=== PATIENT | male | born 1955 | race Caucasian/White ===

== ENCOUNTER 2017-12-28 21:41 | Inpatient (IN) | payer OTHER ==
[~2017-12-28] VITALS: Ht 185.4 cm; Wt 115.6 kg
[2017-12-28 23:04] LABS: Basophils # (auto) 0.1 uL; Basophils % (auto) 0.6 % (0.0-2.0); Eosinophils # (auto) 0.1 uL; Eosinophils % (auto) 1.3 % (0.0-7.0); Hematocrit 47.3 % (41.0-53.0); Hemoglobin 16.1 g/dL (13.5-17.5); Lymphocytes # (auto) 2.1 uL; Lymphocytes % (auto) 23.3 % (10.0-50.0); Mean Corpuscular Hemoglobin 33.9 pg (28.0-32.0); Mean Corpuscular Hgb Conc. 34.1 g/dL (32.0-36.0); Mean Corpuscular Volume 99.4 fL (80.0-100.0); Monocytes # (auto) 0.9 uL; Monocytes % (auto) 9.8 % (0.0-12.0); Neutrophils # (auto) 5.9 uL; Platelet Count (auto) 199 10^3/uL (140-450); Red Blood Cells 4.76 10^6/uL (4.5-5.90); Red Cell Distribution Width 13.8 % (11.8-14.3); White Blood Cell 9.1 10^3/uL (4.4-10.8)
[2017-12-28 23:20] LABS: INR 0.97 (0.9-1.15); Partial Thromboplastin Time 26.4 sec (22.64-33.71); Prothrombin Time 10.6 sec (9.37-12.3)
[2017-12-28 23:29] LABS: Albumin 3.5 g/dL (3.4-5.0); BUN/Creatinine Ratio 14.3; Bilirubin, Total 0.5 mg/dL (0.2-1.0); Calcium 8.6 mg/dL (8.5-10.1); Magnesium 2.2 mg/dL (1.6-2.6); Potassium 3.7 mmol/L (3.5-5.1); Total Protein 7.5 g/dL (6.4-8.2)
[2017-12-29] MEDS ORDERED: ENOXAPARIN SOD 120 MG/0.8 ML SYRINGE SC ONE (00:15)
[2017-12-29] MEDS ORDERED: METOPROLOL TARTRATE 25 MG TAB PO ONE (00:15)
[2017-12-29] MEDS ORDERED: CLOPIDOGREL BISULFATE 75 MG TAB PO ONE (00:15)
[2017-12-29] MEDS ORDERED: ATORVASTATIN 20 MG TAB PO ONE (00:15)
[2017-12-29] MEDS ORDERED: NITROGLYCERIN 0.4 MG SL TAB SL PRN (04:15)
[2017-12-29] MEDS ORDERED: HYDROcodone-ACET 5/325MG TAB PO PRN (04:15)
[2017-12-29] MEDS ORDERED: ACETAMINOPHEN 500 MG TAB PO PRN (04:15)
[2017-12-29] MEDS ORDERED: MORPHINE SULFATE 4 MG/ML SYR/VIAL IV PRN (04:15)
[2017-12-29] MEDS ORDERED: ONDANSETRON HCL 4 MG/2 ML VIAL IV PRN (04:15)
[2017-12-29 05:50] LABS: Basophils # (auto) 0.1 uL; Eosinophils # (auto) 0 uL; Monocytes # (auto) 0.9 uL; Monocytes % (auto) 9.9 % (0.0-12.0); Red Cell Distribution Width 13.9 % (11.8-14.3)
[2017-12-29 05:52] VITALS: BP 145/81
[2017-12-29 05:59] LABS: Basophils % (auto) 1.1 % (0.0-2.0); Eosinophils % (auto) 0.5 % (0.0-7.0); Hemoglobin 16.9 g/dL (13.5-17.5); Lymphocytes # (auto) 2.8 uL; Lymphocytes % (auto) 30.2 % (10.0-50.0); Mean Corpuscular Hemoglobin 34.9 pg (28.0-32.0); Mean Corpuscular Hgb Conc. 35.1 g/dL (32.0-36.0); Mean Corpuscular Volume 99.4 fL (80.0-100.0); Neutrophils # (auto) 5.3 uL; Neutrophils % (auto) 58.3 % (37.0-80.0); Nucleated Red Blood Cells % 0.1 %; Platelet Count (auto) 209 10^3/uL (140-450); Red Blood Cells 4.83 10^6/uL (4.5-5.90); White Blood Cell 9.2 10^3/uL (4.4-10.8)
[2017-12-29 06:24] LABS: BUN/Creatinine Ratio 16.3; Calcium 9.2 mg/dL (8.5-10.1); Potassium 4.3 mmol/L (3.5-5.1)
[2017-12-29 08:00] VITALS: BP 146/91
[2017-12-29 08:53] LABS: Basophils # (auto) 0.1 uL; Basophils % (auto) 0.8 % (0.0-2.0); Eosinophils # (auto) 0 uL; Eosinophils % (auto) 0.2 % (0.0-7.0); Hematocrit 50.5 % (41.0-53.0); Hemoglobin 17.2 g/dL (13.5-17.5); Lymphocytes # (auto) 2.7 uL; Lymphocytes % (auto) 25.2 % (10.0-50.0); Mean Corpuscular Hemoglobin 33.7 pg (28.0-32.0); Mean Corpuscular Hgb Conc. 34.1 g/dL (32.0-36.0); Mean Corpuscular Volume 98.9 fL (80.0-100.0); Monocytes # (auto) 1.1 uL; Monocytes % (auto) 10.1 % (0.0-12.0); Neutrophils # (auto) 6.7 uL; Neutrophils % (auto) 63.7 % (37.0-80.0); Nucleated Red Blood Cells % 0.4 %; Platelet Count (auto) 219 10^3/uL (140-450); Red Blood Cells 5.11 10^6/uL (4.5-5.90); Red Cell Distribution Width 13.9 % (11.8-14.3); White Blood Cell 10.6 10^3/uL (4.4-10.8)
[2017-12-29 08:59] LABS: INR 1.01 (0.9-1.15); Partial Thromboplastin Time 31.8 sec (22.64-33.71)
[2017-12-29] MEDS ORDERED: HEPARIN DRIP/D5W 100UNITS/ML 250 ML IV SCH (09:00)
[2017-12-29] MEDS ORDERED: HEPARIN SODIUM (PORCINE) 5000 UNITS/ML 1ML VIAL IV ONE (09:00)
[2017-12-29] MEDS ORDERED: CLOPIDOGREL BISULFATE 75 MG TAB PO SCH (10:00)
[2017-12-29] MEDS ORDERED: METOPROLOL TARTRATE 25 MG TAB PO SCH (10:00)
[2017-12-29] MEDS ORDERED: diphenhdrAMINE HCL 50 MG/1 ML VL IV ONE (10:15)
[2017-12-29] MEDS ORDERED: ASPirin 81 mg TAB PO SCH (10:17)
[2017-12-29] MEDS: methylPREDNISolone SOD SUCC 125 MG/2 ML VL IV SCH ×3 (10:43→17:49)
[2017-12-29] MEDS: METOPROLOL TARTRATE 25 MG TAB PO SCH ×2 (10:43→21:07)
[2017-12-29] MEDS ORDERED: LIDOCAINE 2%HCL (LOCAL ANESTH.) INJ 20ML MDV ONE (11:51)
[2017-12-29] MEDS ORDERED: IODIXANOL 320MG/ML 100ML BTL IV ONE (11:51)
[2017-12-29] MEDS ORDERED: methylPREDNISolone SOD SUCC 125 MG/2 ML VL IV SCH (12:00)
[2017-12-29] MEDS ORDERED: ALLO300T2 PO (12:15)
[2017-12-29] MEDS ORDERED: METO-158 PO (12:15)
[2017-12-29] MEDS ORDERED: ANGIOMAX 250 MG VIAL IV ONE (12:19)
[2017-12-29] MEDS ORDERED: VERAPAMIL 2.5MG/ML INJ 2ML VIAL IV ONE (12:19)
[2017-12-29] MEDS ORDERED: fentaNYL CITRATE 100 MCG/2 ML VL ONE (12:20)
[2017-12-29] MEDS ORDERED: FAMOTIDINE (10MG/ML) 2ML VL IV ONE (12:20)
[2017-12-29] MEDS ORDERED: MIDAZOLAM HCL 1MG/1ML-2 ML VIAL ONE (12:20)
[2017-12-29] MEDS ORDERED: EPTIFIBATIDE INJ (2MG/ML) 10ML VIAL IV ONE (12:44)
[2017-12-29 16:00] VITALS: BP 144/76
[2017-12-29 20:00] VITALS: BP 138/84
[2017-12-29] MEDS ORDERED: CLOPIDOGREL 300 MG TAB PO ONE (20:45)
[2017-12-29] MEDS ORDERED: ATORVASTATIN 20 MG TAB PO SCH (22:00)
[2017-12-29 23:54] VITALS: BP 139/67
[2017-12-30 04:11] VITALS: BP 129/73
[2017-12-30] MEDS: METOPROLOL TARTRATE 25 MG TAB PO SCH (09:46)
[2017-12-30] MEDS ORDERED: ASPirin 81 mg TAB PO SCH (10:00)
[2017-12-30] MEDS ORDERED: CLOPIDOGREL BISULFATE 75 MG TAB PO SCH (10:00)
[2017-12-30 11:31] LABS: Basophils # (auto) 0.1 uL; Basophils % (auto) 0.4 % (0.0-2.0); Eosinophils # (auto) 0 uL; Hematocrit 49.6 % (41.0-53.0); Hemoglobin 16.8 g/dL (13.5-17.5); Lymphocytes # (auto) 1.9 uL; Lymphocytes % (auto) 9.1 % (10.0-50.0); Mean Corpuscular Hemoglobin 33.8 pg (28.0-32.0); Mean Corpuscular Hgb Conc. 33.9 g/dL (32.0-36.0); Mean Corpuscular Volume 99.6 fL (80.0-100.0); Monocytes # (auto) 1.4 uL; Monocytes % (auto) 6.4 % (0.0-12.0); Neutrophils # (auto) 17.7 uL; Neutrophils % (auto) 84.1 % (37.0-80.0); Nucleated Red Blood Cells % 0.1 %; Platelet Count (auto) 222 10^3/uL (140-450); Red Blood Cells 4.98 10^6/uL (4.5-5.90); Red Cell Distribution Width 14.1 % (11.8-14.3); White Blood Cell 21.1 10^3/uL (4.4-10.8)
[2017-12-30 11:50] LABS: Calcium 8.9 mg/dL (8.5-10.1); Potassium 4.2 mmol/L (3.5-5.1)
[2017-12-30 12:00] VITALS: BP 137/75
[2017-12-30 15:03] VITALS: BP 128/70
[2017-12-30 16:00] VITALS: BP 139/76
[2017-12-30 16:03] VITALS: BP 128/70
== END 2017-12-30 16:08 | disposition home or self-care (01) | DRG 247 ==
LOC: EDBD 21:41 → ER 21:46 → OVERFLOW 21:47 → DOU IN ICU 12-29 05:32
PROVIDERS: ADMIT Nurse Practitioner Family; ATTEND Family Medicine
PROC: 027034Z Dilation of Coronary Artery, One Artery with Drug-eluting Intraluminal Device, Percutaneous Approach (ICD-10-PCS; principal; 2017-12-29)
PROC: 4A023N7 Measurement of Cardiac Sampling and Pressure, Left Heart, Percutaneous Approach (ICD-10-PCS; 2017-12-29)
PROC: B2111ZZ Fluoroscopy of Multiple Coronary Arteries using Low Osmolar Contrast (ICD-10-PCS; 2017-12-29)
PROC: 3E073PZ Introduction of Platelet Inhibitor into Coronary Artery, Percutaneous Approach (ICD-10-PCS; 2017-12-29)
DX: I21.4 Non-ST elevation (NSTEMI) myocardial infarction (principal); E03.9 Hypothyroidism, unspecified; I10 Essential (primary) hypertension; E78.00 Pure hypercholesterolemia, unspecified; I25.10 Atherosclerotic heart disease of native coronary artery without angina pectoris; M10.9 Gout, unspecified; K21.9 Gastro-esophageal reflux disease without esophagitis; E66.9 Obesity, unspecified; Z79.82 Long term (current) use of aspirin; Z82.49 Family history of ischemic heart disease and other diseases of the circulatory system; Z88.6 Allergy status to analgesic agent; Z79.899 Other long term (current) drug therapy; Z91.041 Radiographic dye allergy status; Z68.33 Body mass index [BMI] 33.0-33.9, adult
CPT/HCPCS: 36415; 71045; 80048; 80053; 80061; 83735; 83880; 84484; 85025; 85610; 85730; 87081; 92920; 92928; 93005; 93306; 93458; 96372; 96373; 99152; C1874; C1887; G0378; J2250; J3490; Q9967

== ENCOUNTER 2021-02-14 12:34 | Emergency (ER) | payer OTHER ==
[~2021-02-14 12:34] MED LIST: ALLO300T2 PO; METO-158 PO
[2021-02-14] MEDS ORDERED: EPINEPHrine HCL 1 MG/10 ML SYRG IV ONE (12:35)
[2021-02-14] MEDS ORDERED: CALCIUM CHLOR(10%) 100MG/ML 10ML SYRINGE IV ONE (12:35)
[2021-02-14] MEDS ORDERED: SODIUM BICARBONATE 8.4% INJ 50ML SYRINGE IV ONE (12:35)
[2021-02-14 12:40] VITALS: BP 209/76
[2021-02-14] MEDS ORDERED: SODIUM BICARBONATE 8.4% INJ 50ML SYRINGE ONE (12:43)
[2021-02-14] MEDS ORDERED: ATOR40TA52 PO (12:50)
[2021-02-14] MEDS ORDERED: METO1TAB9 PO (12:50)
== END 2021-02-14 13:10 ==
LOC: ER 12:34 → EDBD 12:34 → ER 13:10
DX: I46.9 Cardiac arrest, cause unspecified (principal); E78.5 Hyperlipidemia, unspecified; I10 Essential (primary) hypertension; I25.2 Old myocardial infarction; R41.82 Altered mental status, unspecified; Z88.6 Allergy status to analgesic agent
CPT/HCPCS: 31500; 92950; 99285; J0171